=== PATIENT | male | born 1985 | race Two or more races ===

== ENCOUNTER 2017-12-10 09:58 | Emergency (ER) | payer OTHER ==
[2017-12-10 10:12] VITALS: BP 140/95; PULSE 63; RESP 16; TEMP 98.4; O2SAT 97
--- NOTE | 2017-12-10 10:18 | EDPHY ---
H & P Time Seen by Provider: 12/10/17 10:17 HPI/ROS: Chief complaint. Back injury HPI. 32-year-old male here with low back pain that began this morning. He was at work lifting and moving concrete forms. Bending, twisting, lifting. Patient sustained pain in his low back. It is worse with movement and especially going from lying to sitting. He has no radiation down his legs. No leg weakness. No bowel or bladder symptoms. No similar symptoms previously. No other injuries. No treatment thus far ROS Constitutional. no fever/chills, no weakness Eyes. no problems with vision ENT. no sore throat, no nasal drainage Cardiovascular. no chest pain Respiratory. no shortness of breath, no cough Abdominal. no abdominal pain, no nausea/vomiting, no diarrhea . no problems urinating MS. Low back pain Skin. no rash Lymph. no swollen glands Neuro. no headache, no dizziness, no difficulty walking or with speech Past Medical/Surgical History: Healthy Social History: , nonsmoker, no alcohol Smoking Status: Never smoked Physical Exam: General Appearance: Alert well-developed male mild distress vital signs are stable Eyes: Pupils equal and round no pallor or injection. ENT, Mouth: Mucous membranes are moist. Respiratory: There are no retractions, lungs are clear to auscultation. Cardiovascular: Regular rate and rhythm. Gastrointestinal: Abdomen is soft and nontender, no masses, bowel sounds normal. Neurological: Awake and alert, sensory and motor exams grossly normal. Straight leg raising negative at 30 degrees bilaterally. Deep tendon reflexes are symmetrical. Great toe strength is normal. Sensation to legs is normal. Skin: Warm and dry, no rashes. Musculoskeletal: Neck is supple nontender. Mild tenderness diffusely across the lumbar area Extremities symmetrical, full range of motion. Psychiatric: Patient is oriented X 3, there is no agitation. Constitutional: Initial Vital Signs Temperature (C) 36.9 C 12/10/17 10:05 Heart Rate 63 12/10/17 10:05 Respiratory Rate 16 12/10/17 10:05 Blood Pressure 140/95 H 12/10/17 10:05 O2 Sat (%) 97 12/10/17 10:05 O2 Delivery Mode Room Air Allergies/Adverse Reactions: No Known Allergies Allergy (Unverified 12/10/17 10:12) Home Medications: Medication Instructions Recorded CYCLOBENZAPRINE HCL [Flexeril] 5 mg PO TIDPRN PRN #10 tab 12/10/17 Medical Decision Making Procedures: Ibuprofen 600 mg ED Course/Re-evaluation: On re-evaluation the patient remained stable. The patient and I discussed treatment plan including criteria for return importance of follow-up further evaluation. He expresses understanding and agreement Differential Diagnosis: I think this likely muscular low back pain. I considered HNP and cauda equina syndrome as well Departure - Departure Disposition: Home, Routine, Self-Care Clinical Impression: Acute lumbar myofascial strain Qualifiers: Encounter type: initial encounter Qualified Code(s): S39.012A - Strain of muscle, fascia and tendon of lower back, initial encounter Condition: Good Instructions: Low Back Strain (ED), Lower Back Exercises (ED), Core Strengthening Exercises (ED) Additional Instructions: Ibuprofen 600 mg every 6 hr for discomfort. Flexeril as muscle relaxer. Activity as tolerated. Return for worsening symptoms including leg weakness or bowel or bladder symptoms. Recheck with workman's Comp in 2 days if not improving Referrals: Work Comp Ref/[facility] [Outside] - As per Instructions Stand Alone Forms: Work Excuse Prescriptions: CYCLOBENZAPRINE HCL [Flexeril] 5 mg PO TIDPRN PRN #10 tab PRN Reason: Spasms
[2017-12-10] MEDS ORDERED: IBUPROFEN 600 MG TAB PO ONE (10:23)
== END 2017-12-10 10:44 | disposition home or self-care (01) ==
LOC: CED 09:58
DX: S39.012A Strain of muscle, fascia and tendon of lower back, initial encounter (principal); X58.XXXA Exposure to other specified factors, initial encounter; Y92.69 Other specified industrial and construction area as the place of occurrence of the external cause; Y99.0 Civilian activity done for income or pay; Y93.89 Activity, other specified